=== PATIENT | male | born 1960 | race Native Hawaiian/Other Pacific Islander ===

== ENCOUNTER 2017-09-20 14:58 | Emergency (ER) | payer BC ==
[2017-09-20 15:50] VITALS: BP 146/88; PULSE 74; RESP 18; TEMP 97.8; O2SAT 98
[2017-09-20] MEDS ORDERED: Tmp-Smz 800 mg-160 mg DS Tab PO STA (15:52)
[2017-09-20] MEDS ORDERED: Bacitracin 500 Units/gm Oint Foilpak UD ONE (15:59)
[2017-09-20] MEDS ORDERED: Tmp-Smz 800 mg-160 mg DS Tab ONE (15:59)
--- NOTE | 2017-09-20 16:06 | C.PDOC ---
History Of Present Illness Deven Magaña is a 57 year old male, with no past medical history, who presents to the emergency department complaining of a "pimple" on right side of upper lip below the nose onset for x2 days. Patient states there is some induration of skin around the area. He has had similar symptoms in the past but his doctor was in vacation so he decided to come to the ER. Patient is requesting Bactrim. He denies any fever or other medical complaints. PMD: None provided. Time Seen by Provider: 09/20/17 15:23 Chief Complaint (Nursing): Abnormal Skin Integrity History Per: Patient History/Exam Limitations: no limitations Onset/Duration Of Symptoms: Days (x2) Current Symptoms Are (Timing): Still Present Location Of Injury: Right: Mouth (right side of upper lip) Severity: None Pain Scale Rating Of: 0 Recent travel outside of the [place]: No Past Medical History Reviewed: Historical Data, Nursing Documentation, Vital Signs Vital Signs: Last Vital Signs Temp 97.8 F 09/20/17 15:19 Pulse 74 09/20/17 15:19 Resp 18 09/20/17 15:19 BP 146/88 09/20/17 15:19 Pulse Ox 98 09/20/17 17:44 - Medical History PMH: No Chronic Diseases Surgical History: No Surg Hx Family History: States: Unknown Family Hx - Social History Hx Tobacco Use: No Hx Alcohol Use: No Hx Substance Use: No - Immunization History Hx Tetanus Toxoid Vaccination: No Hx Influenza Vaccination: No Hx Pneumococcal Vaccination: No Review Of Systems Except As Marked, All Systems Reviewed And Found Negative. Constitutional: Negative for: Fever Skin: Positive for: Other ("pimple" on right side of upper lip) Physical Exam - Physical Exam Appears: Well, No Acute Distress Skin: Normal Color, Warm, Dry Head: Atraumatic, Normacephalic Eye(s): bilateral: Normal Inspection, PERRL, EOMI Ear(s): Bilateral: Normal Nose: Normal Lips: Other (induration noted. Folliculitis) Throat: Normal Neck: Normal, Normal ROM, Supple Extremity: Normal ROM, No Deformity, No Swelling Neurological/Psych: Oriented x3, Normal Speech ED Course And Treatment O2 Sat by Pulse Oximetry: 98 (RA) Pulse Ox Interpretation: Normal Medical Decision Making Medical Decision Making: Initial Impression: Folliculitis Initial Plan: --Bactrim DS 1 tab PO --Bactroban Ointment 1 gm TOP --reevaluation 16:00 --Upon provider reevaluation patient is feeling better, is medically stable, and requires no further treatment in the ED at this time. Patient will be discharged with Rx for Bactrim and Bactroban. Counseling was provided and all questions were answered regarding diagnosis and need for follow up with PMD. There is agreement to discharge plan. Return if symptoms persist or worsen. Disposition - Disposition Disposition: HOME/ ROUTINE Disposition Time: 16:04 Condition: STABLE Additional Instructions: Follow up with your PMD within 1-2 days. Return to ED if feel worse. Prescriptions: Sulfamethoxazole/Trimethoprim [Bactrim DS 800 mg-160 mg] 1 tab PO BID #14 tab Mupirocin 2% Ointment [Bactroban Ointment] 1 appl TP BID #1 tube Instructions: Folliculitis (ED) Forms: [employer] (Greenlandic) - Clinical Impression Clinical Impression: Folliculitis - Scribe Statement Massimo Low All medical record entries made by the Scribe were at my direction and personally dictated by me. I have reviewed the chart and agree that the record accurately reflects my personal performance of the history, physical exam, medical decision making, and the department course for this patient. I have also personally directed, reviewed, and agree with the discharge instructions and disposition.
== END 2017-09-20 16:20 | disposition home or self-care (01) ==
LOC: C.ER 14:58
DX: L73.9 Follicular disorder, unspecified (principal)

== ENCOUNTER 2017-09-23 14:49 | Emergency (ER) | payer BC ==
[2017-09-23 15:07] VITALS: BP 137/89; PULSE 80; RESP 16; TEMP 98.7; O2SAT 98
--- NOTE | 2017-09-23 15:33 | C.PDOC ---
History Of Present Illness NEW ONSET ORAL LESIONS " I THINK I AM ALLERGIC TO THE BACTRIM" SINCE 09/21. GIVEN BACTRIM ON 09/20 FOR COLD SORE INFECTION IN NOSE. PS NOTICED TINGLING IN LIPS THAT EVENING, TOOK DOSE AGAIN 09/21 AND HAD NEW LESIONS AND INCREASED MOUTH SWELLING. LAST DOSE 09/21. DENIES OTHER ASSOC SX. PS NOW REMEMBERS HAVING SIM PERIORAL TINGLING ON PRIOR EXPOSURE TO SULFA "YEARS AGO BUT I FORGOT ABOUT IT WHEN I WAS HERE ON 09/20". PS ABLE TO DRINK LIQUIDS WO DIFF. PS COLD SORE LESION IS IMPROVED SINCE INITIAL ER VISIT. EXAM NAD HEENT +MILD SWELLING PERIORAL W CLEAR BLISTERING. +SUBLINGUAL DEHISC BLISTER? HEALING COLD SORE BELOW NOSE. NO CELLULITIS REMAINDER NEG Time Seen by Provider: 09/23/17 15:15 Chief Complaint (Nursing): Allergic Reaction History Per: Patient History/Exam Limitations: no limitations Onset/Duration Of Symptoms: Days Context: Food Possible Cause: Food Past Medical History Reviewed: Historical Data, Nursing Documentation, Vital Signs Vital Signs: Last Vital Signs Temp 98.7 F 09/23/17 15:04 Pulse 80 09/23/17 15:04 Resp 16 09/23/17 15:04 BP 137/89 09/23/17 15:04 Pulse Ox 98 09/23/17 15:39 Family History: States: No Known Family Hx - Social History Hx Tobacco Use: No Hx Alcohol Use: No Hx Substance Use: No - Immunization History Hx Tetanus Toxoid Vaccination: No Hx Influenza Vaccination: No Hx Pneumococcal Vaccination: No Review Of Systems Except As Marked, All Systems Reviewed And Found Negative. Constitutional: Negative for: Fever ENT: Positive for: Other ((+) oral lesions). Negative for: Throat Pain Gastrointestinal: Negative for: Nausea, Vomiting Physical Exam - Physical Exam Appears: Non-toxic, No Acute Distress Skin: Warm, Dry, No Rash Head: Atraumatic, Normacephalic Oral Mucosa: Moist Lips: Swelling (mild swelling to perioral with clear blistering), Other ((+) sublingual dehiscence blister? healing cold sore below nose. (-) cellulitis) Throat: Normal, No Erythema, No Exudate, No Drooling Respiratory: Normal Breath Sounds Extremity: Normal ROM, No Swelling Neurological/Psych: Oriented x3, Normal Speech ED Course And Treatment O2 Sat by Pulse Oximetry: 98 (RA) Pulse Ox Interpretation: Normal Medical Decision Making Medical Decision Making: PLAN: * Prednisone PO Disposition Counseled Patient/Family Regarding: Diagnosis, Need For Followup, Rx Given - Disposition Referrals: YOUR,PMD [Other] Disposition: HOME/ ROUTINE Disposition Time: 15:33 Condition: IMPROVED Prescriptions: Cephalexin [cephalexin] 500 mg PO BID #14 cap predniSONE [Prednisone] 60 mg PO DAILY #12 tab Instructions: Antibiotic Medication Allergy (ED) Forms: Work/School/Gym Excuse, [facility] (Vincentian) - Clinical Impression Clinical Impression: Allergic reaction caused by a drug - Scribe Statement The provider has reviewed the documentation as recorded by the Joseibchristy Grey Provider Attestation: All medical record entries made by the Joseibchristy were at my direction and personally dictated by me. I have reviewed the chart and agree that the record accurately reflects my personal performance of the history, physical exam, medical decision making, and the department course for this patient. I have also personally directed, reviewed, and agree with the discharge instructions and disposition.
== END 2017-09-23 15:53 | disposition home or self-care (01) ==
LOC: C.ER 14:49
DX: K13.79 Other lesions of oral mucosa (principal); T37.0X5A Adverse effect of sulfonamides, initial encounter

== ENCOUNTER 2018-12-17 12:31 | Outpatient (CLI) | payer OTHER | END 2018-12-17 12:32 | disposition home or self-care (01) | LOC: C.LAB 12:31 | DX: E11.9 Type 2 diabetes mellitus without complications (principal) ==